=== PATIENT | female | born 1955 | race Caucasian/White ===

== ENCOUNTER 2018-04-15 09:55 | Emergency (ER) | payer OTHER ==
[~2018-04-15] VITALS: Ht 160 cm; Wt 63.0 kg
[2018-04-15 12:04] LABS: ABSOLUTE NEUTROPHILS 5.6 thou/uL (1.4-8.2); BASOPHILS 0.5 % (0.0-2.0); EOSINOPHILS 1.2 % (0.0-3.0); HEMATOCRIT 36.1 % (37.0-47.0); HEMOGLOBIN 12.3 gm/dL (12.0-15.0); LYMPHOCYTES 19.7 % (24.0-44.0); MCH 31.4 pg (26.0-34.0); MCV 92.3 fL (80.0-100.0); MONOCYTES 4.9 % (1.0-8.0); PLATELET COUNT 235 thou/uL (150-400); POLYS 73.7 % (36.0-66.0); RBC 3.91 mil/uL (4.20-5.00); RDW 13.4 % (10.5-14.5); WBC 7.6 thou/uL (4.0-11.0)
[2018-04-15 12:13] LABS: CALCIUM 9.3 mg/dL (8.5-10.1); CREATININE 0.8 mg/dL (0.6-1.0); POTASSIUM 3.5 mmol/L (3.5-5.1)
[2018-04-15 12:19] LABS: ALBUMIN 3.9 g/dL (3.4-5.0); TOTAL BILIRUBIN 0.5 mg/dL (<0.1-1.0); TOTAL PROTEIN 7.3 g/dL (6.4-8.2)
[2018-04-15 13:20] VITALS: BP 121/58
[2018-04-15] MEDS ORDERED: IBUPROFEN 600600 M1 PO (13:21)
[2018-04-15] MEDS ORDERED: ONDANSETRON HCL4 M2 PO (13:21)
== END 2018-04-15 13:20 | disposition home or self-care (01) ==
LOC: ER 09:55
PROVIDERS: Nurse Practitioner Family
DX: R51 Headache (principal); R42 Dizziness and giddiness; Z88.8 Allergy status to other drugs, medicaments and biological substances